=== PATIENT | female | born 1965 ===

== ENCOUNTER 2024-11-03 21:12 | Outpatient (REF) | payer MEDICAID, SELFPAY ==
[2024-11-03 22:15] LABS: Anion Gap 10.7 mmol/L (3-11); BUN 15 mg/dL (7-18); CO2 27.3 mmol/L (21.0-32.0); Calcium 9.5 mg/dL (8.5-10.1); Chloride 104 mmol/L (98-107); Estimated GFR 57.88 (mL/min/1.73m2); Glucose 101 mg/dL (74-106); NT-proBNP 162 pg/mL (<300); Potassium 4.3 mmol/L (3.5-5.1); Sodium 142 mmol/L (136-145)
== END 2024-11-03 21:13 | disposition home or self-care (01) ==
LOC: LBN 21:12
PROVIDERS: Visit Provider Physician Assistant Medical
DX: R60.0 Localized edema (principal)
CPT/HCPCS: 80048; 83880